=== PATIENT | male | born 1965 ===

== ENCOUNTER 2017-09-17 14:40 | Day surgery (SDC) | payer OTHER ==
[2017-09-17] MEDS ORDERED: KEFLEX500 MG PO (16:12)
[2017-09-17 17:36] VITALS: BP 126/87
[2017-09-17 17:40] VITALS: BMI 29.9
--- NOTE | 2017-09-17 18:06 | NUR ---
DINNER TRAY TAKEN TO PATIENT. AT BEDSIDE. URINAL ALSO GIVEN TO PATIENT TO MEASURE URINE.
--- NOTE | 2017-09-17 20:10 | NUR ---
PT ATE SANDWICH, VOIDED AND AMBULATED WITHOUT DIZZINESS. REVIEWED DISCHARGE INSTRUCTIONS WITH PT AND . PT ESCORTED OUT OF HOSPITAL IN WHEELCHAIR.
--- NOTE | 2017-09-21 13:19 | OP ---
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 PROCEDURE: Formalization of amputation with ablation of the nailbed. SURGEON: Stevo Mg MD ANESTHESIA: General. INTRAOPERATIVE COMPLICATIONS: None. SUMMARY OF PATHOLOGIC FINDINGS: The patient taken off the distal aspect of his finger. This required foreshortening of the phalanx with closure and attempts were made to save the distal nailbed; however, it is back to the germinal matrix at this point and may require further operative intervention. Having completed irrigation and debridement that included skin; subcutaneous tissue; and portions of fat, fascia, muscle, and bone, the wound was closed with 4-0 Prolene. Sterile dressings were applied. The area was locally infiltrated with 0.25% Marcaine with epinephrine. The patient was awakened and taken to recovery room in stable condition. All final needle and sponge counts were correct. TRANSINT:[id number] Voice Confirmation ID: [id number] DOCUMENT ID: [id number] STEVO MG MD at 1319 CC: [id number] DICTATION DATE: 09/17/17 1614 STEERER: 09/17/17 1640 DIS IN 09/17/17 [id number] [place] [id number]
== END 2017-09-17 20:10 | disposition home or self-care (01) ==
LOC: OBSVTIME → D.ER 14:40 → D.OPS 14:40 → EDSTATUS 16:00 → D.MS 16:11 → D.ER 16:11 → D.MS 16:11 → OBSVTIME 16:11 → D.MS 20:10 → D.OPS 20:10 → D.MS 20:10
DX: S68.123A Partial traumatic metacarpophalangeal amputation of left middle finger, initial encounter (principal); I10 Essential (primary) hypertension; E03.9 Hypothyroidism, unspecified